=== PATIENT | male | born 1995 | race Caucasian/White ===

== ENCOUNTER 2019-09-28 18:53 | Emergency (ER) | payer SELFPAY ==
--- NOTE | 2019-09-28 20:07 | RAD REPORT ---
EXAM DESCRIPTION: RAD - Foot Right 3 View - 09/28/2019 7:57 pm CLINICAL HISTORY: Right foot pain status post injury FINDINGS: No fracture or dislocation is seen
[2019-09-28] MEDS ORDERED: HYDROCODONE/APAP 5/325 MG TAB ONE (20:10)
--- NOTE | 2019-09-28 20:18 | RAD REPORT ---
EXAM DESCRIPTION: RAD - Ankle Right 3 View - 09/28/2019 8:11 pm CLINICAL HISTORY: Right ankle pain FINDINGS: No fracture or dislocation is seen. 14 millimeter sclerotic density distal tibia likely benign. Follow-up x-ray is recommended in 3 month s to assess stability
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
[2019-09-28 22:08] VITALS: BP 139/90; TEMP 97.4; O2SAT 100
== END 2019-09-28 21:31 | disposition home or self-care (01) ==
LOC: ER 18:53
DX: S93.401A Sprain of unspecified ligament of right ankle, initial encounter (principal); S93.601A Unspecified sprain of right foot, initial encounter; Y93.16 Activity, rowing, canoeing, kayaking, rafting and tubing; Y92.828 Other wilderness area as the place of occurrence of the external cause
CPT/HCPCS: 99284